=== PATIENT | male | born 1950 | race Hispanic/Latino ===

== ENCOUNTER 2025-03-21 20:55 | Emergency (ER) | payer MEDICARE ==
[~2025-03-21] VITALS: Ht 180.3 cm; Wt 70.8 kg
--- NOTE | 2025-03-21 21:01 | NUR ---
DENIES HEADACHE, NO FACIAL DROOP, NO SLURRED SPEECH, NO ARM DRIFT. DENIES NUMBNESS TO BILATERAL FACE/UPPER/LOWER EXTREMITIES
[2025-03-21 21:14] LABS: IMMATURE GRANULOCYTE ABSOLUTE 0.03 K/uL (0-1); NUCLEATED RED BLOOD CELLS 0.0 % (0.0-0.19); PLATELET COUNT (AUTO) 172 K/uL (130-400); RED BLOOD CELL COUNT(AUTO) 5.53 MIL/uL (4.50-6.20); RED CELL DISTRIBUTION WIDTH 13.1 % (11.0-15.5); WHITE BLOOD COUNT (AUTO) 7.1 K/uL (4.8-10.8)
[2025-03-21 21:19] LABS: APPEARANCE,URINE CLEAR (CLEAR); GLUCOSE, URINE (UA) >=1000 mg/dL (NEGATIVE); LEUKOCYTE ESTERASE ,URINE NEGATIVE Leu/uL (NEGATIVE); NITRATE,URINE NEGATIVE (NEGATIVE); OCCULT BLOOD,URINE NEGATIVE (NEGATIVE)
[2025-03-21 21:20] LABS: ADD UA MICROSCOPIC YES
[2025-03-21 21:21] LABS: CREATININE 1.0 mg/dL (0.5-1.3); GLOMERULAR FILTR. RATE CALC 80.0 mL/min (>90); GLUCOSE,RANDOM 99.0 mg/dL (70-105); SODIUM SERUM 128.0 mmol/L (136-145); UREA NITROGEN, BLOOD 11.0 mg/dL (7-18)
[2025-03-21 21:31] LABS: CREATINE KINASE, TOTAL 52.0 U/L (21-232)
--- NOTE | 2025-03-21 22:49 | ERN ---
General Chief Complaint: Chest Pain Stated Complaint: CHEST PAIN,SOB,DIZZINESS Time Seen by MD: 21:09 Time Seen by Midlevel: 21:09 Source: patient History of Present Illness Initial Comments 74-year-old male presents to the ER for evaluation of some left-sided chest pain. Patient states he drove into town today from [place] when he was unpacking he began having left-sided chest tightness. On arrival with the patient states his chest pain has resolved. Has no other complaints Allergies: Coded Allergies: No Known Allergies (Unverified Allergy, Unknown, 03/21/25) Past Medical History Past Medical History: A-Fib, CHF, High Cholesterol, Hypertension Past Surgical History: Pacer/AICD, Other Surgical History Other: MITRAL VALVE REPLACEMENT, [employer] PACEMEKER ROS Dictation CONSTITUTIONAL: Negative except for HPI HEAD/FACE: Negative except for HPI EENT: Negative except for HPI RESPIRATORY: Negative except for HPI GASTROINTESTINAL/ABDOMINAL: Negative except for HPI GENITOURINARY: Negative except for HPI MUSCULOSKELETAL: Negative except for HPI INTEGUMENTARY: Negative except for HPI NEUROLOGICAL/PSYCH: Negative except for HPI HEMATOLOGIC/LYMPHATIC: Negative except for HPI All Systems Negative, Except as noted above. 13 point review of systems assessed and all negative except for above. Physical Exam Physical Exam Dictation Vital Signs reviewed General Appearance: Alert, oriented x 3, no acute distress, well developed, nourished. Head and Face: non-traumatic. Eyes: PERRL, pink conjunctivas, eyelid no trauma, anterior chamber with arcus senilis. Ears: Pinnas intact and no signs of trauma or erythema ear canals clear and no discharge TM no erythema Nose: No discharge, no bleeding. Oropharynx: Mouth normal, tongue pink, pharynx clear,no erythema, tonsils no exudates, no abscesses noted, mucous membrane moist Neck: Supple, non-tender, no thyromegaly, no masses, no JVD, no bruits Breast:Deferred Chest:No tenderness, no crepitus, no paradoxical movement, no retractions Lungs:Clear, well-ventilated, symmetric, no rales, no wheezing, no rhonchi, no stridor, good breath sounds bilaterally Heart: Regular rate, regular rhythm, no murmur, no gallops Vascular: no peripheral edema, Abdomen: Soft, positive bowel sounds, nondistended, no guarding, nontender, no rebound, no masses no hepatomegaly, no splenomegaly, no Nails's sign, no hernias. Rectal: Deferred Genital: Deferred Neurological: Normal speech, motor function intact, sensory function intact Musculoskeletal: Neck nontender, full range of motion, back nontender, full range of motion, Extremities: nontender, full range of motion Skin: Color pink, dry, no turgor, no rash, no lacerations, no abrasions, no contusions. Lymphatic: Deferred Results Laboratory and Microbiology Lab and Micro Result Laboratory Tests Test 03/21/25 21:01 03/21/25 21:07 03/21/25 22:11 Urine Color COLORLESS (YELLOW) Urine Appearance CLEAR (CLEAR) Urine pH 6.0 (5.0-8.0) Urine Specific [place] 1.002 (1.001-1.031) Urine Protein NEGATIVE mg/dL (NEGATIVE) Urine Glucose (UA) >=1000 mg/dL (NEGATIVE) H Urine Ketones 5 mg/dL (NEGATIVE) H Urine Occult Blood NEGATIVE (NEGATIVE) Urine Nitrate NEGATIVE (NEGATIVE) Urine Bilirubin NEGATIVE mg/dL (NEGATIVE) Urine Urobilinogen 0.2 mg/dL (0.2-1.0) Urine Leukocyte Esterase NEGATIVE Ray[place]/uL Urine RBC None /HPF (0-1) Urine WBC None /HPF (0-1) Urine Bacteria None /HPF (None Seen) White Blood Count 7.1 K/uL (4.8-10.8) Red Blood Count 5.53 MIL/uL (4.50-6.20) Hemoglobin 16.9 g/dL (14.0-18.0) Hematocrit 49.3 % (42-54) Mean Corpuscular Volume 89.2 fL (79-99) Mean Corpuscular Hemoglobin 30.6 pg (27.0-33.0) Mean Corpuscular Hemoglobin Concent 34.3 g/dL (32.0-36.0) Red Cell Distribution Width 13.1 % (11.0-15.5) Platelet Count 172 K/uL (130-400) Mean Platelet Volume 9.3 fL (7.5-10.5) Immature Granulocyte % (Auto) 0.4 % (0-1) Neutrophils (%) (Auto) 55.7 % (40.0-77.0) Lymphocytes (%) (Auto) 29.1 % (21.0-51.0) Monocytes (%) (Auto) 12.5 % (3.0-13.0) Eosinophils (%) (Auto) 1.5 % (0.0-8.0) Basophils (%) (Auto) 0.8 % (0.0-5.0) Neutrophils # (Auto) 4.0 K/uL (1.8-7.7) Lymphocytes # (Auto) 2.1 K/uL (1.0-4.8) Monocytes # (Auto) 0.9 K/uL (0.1-1.0) Eosinophils # (Auto) 0.11 K/uL (0.00-0.70) Basophils # (Auto) 0.06 K/uL (0.00-0.20) Absolute Immature Granulocyte (auto 0.03 K/uL (0-1) Nucleated Red Blood Cells 0.0 % (0.0-0.19) Sodium Level 128 mmol/L (136-145) L Potassium Level 4.6 mmol/L (3.5-5.1) Chloride Level 93 mmol/L (101-111) L Carbon Dioxide Level 29 mmol/L (21-32) Blood Urea Nitrogen 11 mg/dL (7-18) Creatinine 1.0 mg/dL (0.5-1.3) Glomerular Filtration Rate Calc 80 mL/min (>90) Random Glucose 99 mg/dL (70-105) Total Calcium 8.7 mg/dL (8.5-10.1) Total Creatine Kinase 52 U/L (21-232) Troponin I High Sensitivity 10 ng/L (4-75) 10 ng/L (4-75) B-Type Natriuretic Peptide 61 pg/mL (0-100) Labs Reviewed?: Yes MDM MDM: Differential diagnosis: ACS, pneumonia, pleural effusion, pulmonary edema, fluid overload There are no social concerns with this patient. Prescription drug management Prescriptions will include: None Medical management and examination interpretation discussions were had by me with other qualified healthcare professionals as indicated for the patient's care. ED Course Orders Procedure Category Date Status Time Vital Signs Per CPOE 03/21/25 Transmitted Routine 20:58 Chest 1vw RAD 03/21/25 Taken 20:58 12 Lead Ekg Tracing- EKG 03/21/25 Logged Technical 20:58 Oxygen By Nc/Pulse Ox CPOE 03/21/25 Transmitted 20:58 Maintain Iv CPOE 03/21/25 Transmitted 20:58 Iv Insertion CPOE 03/21/25 Transmitted 20:58 Cardiac Monitoring CPOE 03/21/25 Transmitted 20:58 Pulse Oximetry With CPOE 03/21/25 Transmitted Vs And Prn 20:58 Cbc With Differential LAB 03/21/25 Complete 20:58 Activity: Br W/Brp CPOE 03/21/25 Transmitted With Assist 20:58 Creatine Kinase, Total LAB 03/21/25 Complete 20:58 Troponin I High LAB 03/21/25 Complete Sensitivity 20:58 Urinalysis Profile LAB 03/21/25 Complete 20:58 Basic Metabolic Panel LAB 03/21/25 Complete 20:58 B-Type Natriuretic LAB 03/21/25 Complete Peptide 21:49 Troponin I High LAB 03/21/25 Complete Sensitivity 22:09 Vital Signs Date Time Temp Pulse Resp B/P (MAP) Pulse Ox O2 Delivery O2 Flow Rate FiO2 03/21/25 22:18 70 14 123/78 97 Room Air* 0 03/21/25 21:12 98.1 70 20 162/85 97 Room Air* 0 03/21/25 20:57 97.5 43 18 171/90 99 Room Air HEART Score Response (Comments) Value History: Low suspicion (0) 0 EKG: Repolarization changes 1 Age: > 65yrs (+2) 2 Risk Factors: 1-2 risk factors (+1) 1 Initial Troponin: Normal limit (0) 0 HEART Score Risk: Mod Risk for MACE (4-6) Total 4 DX & DISP Disposition: Discharge Departure Impression: Primary Impression: Atypical chest pain Condition: Stable Additional Instructions: You were evaluated today for chest pain. Your evaluation included an EKG, chest x-ray, and blood work, including cardiac enzyme testing (troponins). All results were normal. There were no signs of a heart attack blood clot or other life-threatening conditions at this time. Your chest pain does not appear to be caused by your heart. Many other things can cause chest discomfort Follow up with your primary care provider within the next 3-5 days for re- evaluation. You may also choose to follow up with a outside maintenance worker if symptoms persist or if you have a history heart disease. Rest and avoid heavy physical exertion until cleared by your doctor. Although your evaluation today was normal, some heart or lung conditions can develop later. If you experience new or worsening pain, please return to the ER for re-evaluation per Referrals: SELF,REFERRAL (PCP) Time of Disposition: 22:46 I have reviewed the case, and I agree with, Diagnosis and Plan I performed the substantive portion of the visit. I have reviewed and personally made and approve the management plan that is documented in the note by myself or the ANTONIO. I acknowledge for responsibility for the patient's management plan. TAMELA LAZO PAC Mar 21, 2025 22:49
[2025-03-21 23:01] VITALS: BP 126/72; PULSE 70; RESP 16; TEMP 98.3; O2SAT 99
--- NOTE | 2025-03-21 23:26 | HMCIMG ---
EXAM: CR Chest, 2 views. CLINICAL HISTORY: Chest pain. COMPARISON: None provided. FINDINGS: The lungs show no infiltrates or other acute findings. No pleural effusion or pneumothorax. The cardiomediastinal silhouette is within normal limits. Aortic valve prosthesis and left side cardiac pacemaker device are in place. No acute osseous abnormality. IMPRESSION: No acute cardiopulmonary process is evident. /[place]
--- NOTE | 2025-03-22 07:12 | EKG ---
[facility] Test Date: 2025-03-21 Test Time: 20:53:29 Pat Name: JESSICA ALVAREZ Department: ED Room: Gender: M Clear Coat Sprayer: [facility] : 1950 Requested By: OMID ESTRADA Order Number: [id number] Reading MD: Gagandeep Vásquez Measurements Intervals [place] Rate: 85 P: 0 NE: 0 QRS: -88 QRSD: 144 T: 103 QT: 401 QTc: 477 Interpretive Statements Atrial-ventricular dual-paced complexes Biventricular paced rhythm Right bundle branch block Inferolateral infarct, old No previous ECG available for comparison Electronically Signed On 03-22-2025 16:15:[address] REPORTER by Gagandeep Vásquez Please click the below link to view image of tracing.
== END 2025-03-21 23:03 | disposition home or self-care (01) ==
LOC: EDH 20:55
DX: R07.89 Other chest pain (principal); I11.0 Hypertensive heart disease with heart failure; I50.9 Heart failure, unspecified; E78.00 Pure hypercholesterolemia, unspecified; I48.91 Unspecified atrial fibrillation; Z95.2 Presence of prosthetic heart valve; Z95.810 Presence of automatic (implantable) cardiac defibrillator
CPT/HCPCS: 36415; 71045; 80048; 81001; 82550; 83880; 84484; 85025; 93005; 99285